=== PATIENT | female | born 1960 | race Caucasian/White ===

== ENCOUNTER 2020-06-07 11:30 | Emergency (ER) | payer OTHER ==
[2020-06-07] MEDS ORDERED: HYDROmorphone 1 MG/ML CARPUJECT IVP STA ×2 (11:49→14:26)
[2020-06-07] MEDS ORDERED: ONDANSETRON 4 MG/2 ML VIAL IVP STA (11:49)
--- NOTE | 2020-06-07 11:50 | ED Physician Documentation ---
PD HPI ABD PAIN - Stated complaint Stated Complaint: ABD PX/NAUSEA - Chief complaint Chief Complaint: Abd Pain - History obtained from History obtained from: Patient - Additional information Additional information: Severe RUQ pain with nausea, no vomiting, since 2 am. HX exlap with splenic repair (not splenectomy) 30 yrs ago. Pain radiates to LUQ. Review of Systems Ten Systems: 10 systems reviewed and negative Constitutional: denies: Fever, Chills Cardiac: denies: Chest pain / pressure, Palpitations Respiratory: denies: Dyspnea, Cough GI: reports: Abdominal Pain, Nausea, Diarrhea ("a little loose"). denies: Vomiting, Constipation PD PAST MEDICAL HISTORY - Present Medications Home Medications: Ambulatory Orders Medication Instructions Recorded Confirmed Oxycodone HCl/Acetaminophen 1 - 2 each PO Q6H PRN #20 tablet 06/07/20 [Percocet 5-325 mg Tablet] - Allergies Allergies/Adverse Reactions: Allergies Allergy/AdvReac Type Severity Reaction Status Date / Time Penicillins Allergy Unknown Verified 06/07/20 11:38 PD ED PE NORMAL - Vitals Vital signs reviewed: Yes - General General: Alert and oriented X 3, No acute distress - HEENT HEENT: PERRL, EOMI - Neck Neck: Supple, no meningeal sign, No bony TTP - Cardiac Cardiac: RRR, No murmur - Respiratory Respiratory: No respiratory distress, Clear bilaterally - Abdomen Abdomen: Other (Exquisitely tender in the right upper quadrant with positive Chavira sign, no other tenderness or surgical signs.) - Back Back: No CVA TTP, No spinal TTP - Derm Derm: Normal color, Warm and dry - Extremities Extremities: No edema, No calf tenderness / cord - Neuro Neuro: Alert and oriented X 3, Normal speech Results - Vitals Vitals: Vital Signs - 24 hr 06/07/20 06/07/20 06/07/20 11:38 11:56 12:45 Temperature 36.3 C L Heart Rate 58 L 52 L 53 L Respiratory 18 16 16 Rate Blood Pressure 141/56 H 132/71 H 112/68 O2 Saturation 100 100 97 06/07/20 06/07/20 06/07/20 14:00 14:53 15:17 Temperature 36.9 C Heart Rate 61 61 64 Respiratory 18 16 16 Rate Blood Pressure 107/68 108/71 108/67 O2 Saturation 99 98 98 Oxygen O2 Source Room air - Labs Labs: Laboratory Tests 06/07/20 06/07/20 06/07/20 11:50 11:50 12:15 WBC 8.2 RBC 4.76 Hgb 13.7 Hct 41.0 MCV 86.1 MCH 28.8 MCHC 33.4 RDW 12.8 Plt Count 206 MPV 10.1 Neut # (Auto) 7.0 H Lymph # (Auto) 0.9 L [place] # (Auto) 0.2 Eos # (Auto) 0.0 Baso # (Auto) 0.0 Absolute Nucleated RBC 0.00 Nucleated RBC % 0.0 Sodium 139 Potassium 3.7 Chloride 104 Carbon Dioxide 26 Anion Gap 9.0 BUN 18 Creatinine 0.7 Estimated GFR (MDRD) 85 L Glucose 162 H Calcium 9.4 Total Bilirubin 0.6 AST 17 ALT 21 Alkaline Phosphatase 48 Total Protein 7.5 Albumin 4.4 Globulin 3.1 Albumin/Globulin Ratio 1.4 Lipase 34 Urine Color LT. YELLOW Urine Clarity HAZY Urine pH 5.5 Ur Specific [place] >=1.030 H Urine Protein NEGATIVE Urine Glucose (UA) NEGATIVE Urine Ketones 15 H Urine Occult Blood NEGATIVE Urine Nitrite NEGATIVE Urine Bilirubin NEGATIVE Urine Urobilinogen 0.2 (NORMAL) Ur Leukocyte Esterase NEGATIVE Urine RBC None Seen Urine WBC 0-3 Ur Squamous Epith Cells NONE SEEN Amorphous Sediment Marked Urine Bacteria None Seen Urine Mucus Marked Strands Ur Microscopic Review INDICATED Urine Culture Comments NOT INDICATED - Rads (name of study) Right upper quadrant ultrasound Radiology: EMP read contemporaneously (Gallstones, no evidence of cholecystitis.) PD MEDICAL DECISION MAKING - ED course ED course: 60-year-old woman with fairly classic biliary colic. Pain was controlled after 2 doses of meds here. No evidence of cholecystitis or other issues on work-up. Departure - Departure Disposition: Home, Self Care Clinical Impression: Biliary colic Condition: Good Record reviewed to determine appropriate education?: Yes Instructions: ED Gallstone W Biliary Colic Follow-Up: Samy Ravi MD [Provider Admit Priv/Credential] - Prescriptions: Oxycodone HCl/Acetaminophen [Percocet 5-325 mg Tablet] 1 - 2 each PO Q6H PRN #20 tablet PRN Reason: pain Comments: As discussed, you do have gallstones and your pain is classic for biliary colic. You need to follow-up with a surgeon and talk about having her gallbladder out. One is listed on this form. I would call today or tomorrow for an appointment. I would try to have the surgery done before returning to [facility]. Return if worse, if you run a fever, if the whites of your eyes turn yellow, or if your stool becomes pale. Or if the pain medication is insufficient for the pain. Discharge Date/Time: 06/07/20 15:33
[2020-06-07 11:57] LABS: BASOPHILS % (AUTO) 0.1 %; HGB - HEMOGLOBIN 13.7 g/dL (12.0-16.0); LYMPHOCYTES # (AUTO) 0.9 10^3/uL (1.5-3.5); LYMPHOCYTES % (AUTO) 11.2 %; MEAN CORPUSCULAR HEMOGLOBIN 28.8 pg (27.0-31.0); MEAN CORPUSCULAR HGB CONC 33.4 g/dL (32.0-36.0); MEAN CORPUSCULAR VOLUME 86.1 fL (81.0-99.0); MEAN PLATELET VOLUME 10.1 fL (7.9-10.8); MONOCYTES # (AUTO) 0.2 10^3/uL (0.0-1.0); MONOCYTES % (AUTO) 2.8 %; NEUTROPHILS % (AUTO) 85.2 %; PLT - PLATELET COUNT 206 10^3/uL (130-450); RED BLOOD COUNT 4.76 10^6/uL (4.20-5.40); RED CELL DISTRIBUTION WIDTH 12.8 % (12.0-15.0); WHITE BLOOD COUNT 8.2 x10^3/uL (4.8-10.8)
[2020-06-07 12:11] LABS: ALBUMIN 4.4 g/dL (3.2-5.5); ALBUMIN/GLOBULIN RATIO 1.4 (1.0-2.2); BILIRUBIN,TOTAL 0.6 mg/dL (0.2-1.0); CALCIUM 9.4 mg/dL (8.5-10.3); CREATININE 0.7 mg/dL (0.4-1.0); TOTAL PROTEIN 7.5 g/dL (6.7-8.2)
[2020-06-07 12:25] LABS: BILIRUBIN,URINE NEGATIVE (NEGATIVE); GLUCOSE, URINE (UA) NEGATIVE (NEGATIVE); KETONES,URINE (UA) 15 mg/dL (NEGATIVE); LEUKOCYTE ESTERASE, URINE NEGATIVE (NEGATIVE); NITRITE,URINE NEGATIVE (NEGATIVE); OCCULT BLOOD,URINE NEGATIVE (NEGATIVE); PH,URINE 5.5 PH (5.0-7.5); PROTEIN,URINE NEGATIVE (NEGATIVE); UROBILINOGEN,URINE 0.2 (NORMAL) E.U./dL (NORMAL)
[2020-06-07 12:27] LABS: CLARITY,URINE HAZY (CLEAR)
[2020-06-07 12:37] LABS: AMORPHOUS SEDIMENT,UR Marked /LPF; BACTERIA,URINE None Seen /HPF (None Seen); MUCUS,URINE Marked Strands; RBC,URINE None Seen /HPF (0-5); SQUAMOUS EPITHELIAL CELL,UR NONE SEEN (<= Few)
[2020-06-07] MEDS ORDERED: KETOROLAC 30 MG/ML VIAL IVP STA (14:26)
--- NOTE | 2020-06-07 14:32 | Ultrasound Report ---
PROCEDURE: Abdomen Limited INDICATIONS: RUQ pain TECHNIQUE: Real-time scanning was performed of the abdominal and retroperitoneal organs, with image documentatio n. COMPARISON: None. FINDINGS: Liver: Liver is normal in size and homogeneous in echotexture. Gallbladder: Gallbladder is nondistended. Multiple shadowing gallstones. A larger gallstone measuring 2.1 cm. No gallbladder wall thickening. No pericholecystic fluid. Negative sonographic Chavira sign. Biliary ducts: Intrahepatic bile ducts are non-dilated. Extrahepatic bile duct caliber measures 3 m m. Normal is 6-7 mm or less in diameter, or 10 mm or less post-cholecystectomy. Pancreas: Visualized portions of the pancreas are sonographically normal. Spleen: Spleen is normal in size and homogeneous in echotexture. Right kidney: Measures 10 cm. Cortex 0.9 cm. No hydronephrosis. Aorta: Visualized aorta is normal in caliber at less than 3 cm. IMPRESSION: 1. No acute cholecystitis. 2. Large gallstone. 3. No right kidney hydronephrosis. Reviewed by: Jonathan Alfaro MD on 06/07/2020 2:30 PM PDT Approved by: Jonathan Alfaro MD on 06/07/2020 2:30 PM PDT Station ID: [id number]
[2020-06-07 15:19] VITALS: BP 108/67
== END 2020-06-07 15:33 | disposition home or self-care (01) ==
LOC: ED 11:30
DX: K80.70 Calculus of gallbladder and bile duct without cholecystitis without obstruction (principal)
CPT/HCPCS: 36415; 76705; 80053; 81001; 83690; 85025; 96374; 96376; 99283; 99284; J1170; 81003; 87086

== ENCOUNTER 2020-06-09 05:31 | Inpatient (IN) | payer OTHER ==
[2020-06-09] MEDS ORDERED: SODIUM CHLORIDE 0.9% 1,000 ML IV STA (06:01)
[2020-06-09] MEDS ORDERED: ONDANSETRON 4 MG/2 ML VIAL IVP STA (06:01)
[2020-06-09] MEDS ORDERED: HYDROmorphone 1 MG/ML CARPUJECT IVP STA (06:27)
[2020-06-09 06:33] LABS: BASOPHILS % (AUTO) 0.1 %; EOSINOPHILS # (AUTO) 0.1 10^3/uL (0.0-0.7); EOSINOPHILS % (AUTO) 0.6 %; HGB - HEMOGLOBIN 13.4 g/dL (12.0-16.0); LYMPHOCYTES # (AUTO) 1.1 10^3/uL (1.5-3.5); LYMPHOCYTES % (AUTO) 14.5 %; MEAN CORPUSCULAR HEMOGLOBIN 29.3 pg (27.0-31.0); MEAN CORPUSCULAR HGB CONC 33.5 g/dL (32.0-36.0); MEAN CORPUSCULAR VOLUME 87.3 fL (81.0-99.0); MEAN PLATELET VOLUME 10.3 fL (7.9-10.8); MONOCYTES # (AUTO) 0.6 10^3/uL (0.0-1.0); MONOCYTES % (AUTO) 8.1 %; NEUTROPHILS % (AUTO) 76.3 %; PLT - PLATELET COUNT 179 10^3/uL (130-450); RED BLOOD COUNT 4.58 10^6/uL (4.20-5.40); WHITE BLOOD COUNT 7.8 x10^3/uL (4.8-10.8)
--- NOTE | 2020-06-09 06:33 | ED Physician Documentation ---
History of Present Illness - Stated complaint Stated Complaint: ABD PX - Chief complaint Chief Complaint: Abd Pain - History obtained from History obtained from: Patient - Additonal information Additional information: Patient returns emergency department complaining of ongoing right upper quadrant abdominal pain since being discharged and diagnosed with gallstones 2 days ago. At that time, patient was not found to have cholecystitis and due to the operating room closure except for emergency cases, the patient was not a candidate for surgery. Additionally, it is documented that she felt better a fter symptomatic treatment. Patient states that she does not really feel like she is gotten better and in fact she feels her pain is gotten worse because she has not been able to hold down her pain medication. She states she does not have any nausea medic. Patient denies any fevers or chills. No jaundice. She states that she stopped really trying to eat after vomiting yesterday morning and stopped taking her pain pills, so she has not vomited since. However, she continues to feel nauseated. No other complaints at this time. Review of Systems Ten Systems: 10 systems reviewed and negative Constitutional: reports: Reviewed and negative Eyes: reports: Reviewed and negative Ears: reports: Reviewed and negative Nose: reports: Reviewed and negative Throat: reports: Reviewed and negative Cardiac: reports: Reviewed and negative Respiratory: reports: Reviewed and negative GI: reports: Abdominal Pain, Nausea, Vomiting : reports: Reviewed and negative Skin: reports: Reviewed and negative Musculoskeletal: reports: Reviewed and negative Neurologic: reports: Reviewed and negative Psychiatric: reports: Reviewed and negative Endocrine: reports: Reviewed and negative Immunocompromised: reports: Reviewed and negative PD PAST MEDICAL HISTORY - Past Medical History Cardiovascular: None Respiratory: None Neuro: None Endocrine/Autoimmune: None GI: None [employer]: None : None HEENT: None Psych: None Musculoskeletal: None Derm: None - Past Surgical History Past Surgical History: Yes General: Appendectomy - Present Medications Home Medications: Ambulatory Orders Medication Instructions Recorded Confirmed Oxycodone HCl/Acetaminophen 1 - 2 each PO Q6H PRN #20 tablet 06/07/20 06/09/20 [Percocet 5-325 mg Tablet] - Allergies Allergies/Adverse Reactions: Allergies Allergy/AdvReac Type Severity Reaction Status Date / Time Penicillins Allergy Unknown Verified 06/09/20 05:40 - Social History Does the pt smoke?: No Smoking Status: Never smoker Does the pt drink ETOH?: No Does the pt have substance abuse?: No - Immunizations Immunizations are current?: Yes PD ED PE NORMAL - Vitals Vital signs reviewed: Yes - General General: Alert and oriented X 3, No acute distress (Patient appears moderately uncomfortable but otherwise no apparent distress.), Well developed/nourished - HEENT HEENT: Atraumatic, PERRL, EOMI, Moist mucous membranes - Neck Neck: Supple, no meningeal sign - Cardiac Cardiac: RRR, No murmur, Strong equal pulses - Respiratory Respiratory: No respiratory distress, Clear bilaterally - Abdomen Abdomen: Soft, Non distended, Other (ModerateSuprapubic and right lower quadrant tenderness with even more tenderness in the right upper quadrant. Mild guarding no rebound.) - Back Back: No CVA TTP - Derm Derm: Normal color, Warm and dry, No rash - Extremities Extremities: No deformity, No edema, No calf tenderness / cord - Neuro Neuro: Alert and oriented X 3, Other (Grossly normal) - Psych Psych: Normal mood, Normal affect Results - Vitals Vitals: Vital Signs - 24 hr 06/09/20 05:36 Temperature 36.7 C Heart Rate 84 Respiratory 16 Rate Blood Pressure 129/62 O2 Saturation 100 Oxygen O2 Source Room air - Labs Labs: Laboratory Tests 06/09/20 06/09/20 06/09/20 06:10 06:10 06:10 WBC 7.8 RBC 4.58 Hgb 13.4 Hct 40.0 MCV 87.3 MCH 29.3 MCHC 33.5 RDW 13.0 Plt Count 179 MPV 10.3 Neut # (Auto) 6.0 Lymph # (Auto) 1.1 L [place] # (Auto) 0.6 Eos # (Auto) 0.1 Baso # (Auto) 0.0 Absolute Nucleated RBC 0.00 Nucleated RBC % 0.0 Sodium 137 Potassium 3.5 Chloride 103 Carbon Dioxide 24 Anion Gap 10.0 BUN 9 Creatinine 0.7 Estimated GFR (MDRD) 85 L Glucose 103 H Calcium 8.9 Total Bilirubin 0.8 AST 64 H ALT 128 H Alkaline Phosphatase 54 Total Protein 7.1 Albumin 3.8 Globulin 3.3 Albumin/Globulin Ratio 1.2 Lipase 41 42 PD MEDICAL DECISION MAKING - ED course Complexity details: reviewed old records, reviewed results, re-evaluated patient, considered differential, d/w patient ED course: The patient was treated symptomatically with IV fluids, Zofran, and Dilaudid. Repeat labs and ultrasound were ordered. The patient's AST and ALT were found to be newly elevated since her last visit. At this point in time, ultrasound is pending, and patient is signed out to Dr. Berry, pending this and final disposition.
[2020-06-09 06:36] LABS: ALBUMIN 3.8 g/dL (3.2-5.5); ALBUMIN/GLOBULIN RATIO 1.2 (1.0-2.2); BILIRUBIN,TOTAL 0.8 mg/dL (0.2-1.0); CALCIUM 8.9 mg/dL (8.5-10.3); CREATININE 0.7 mg/dL (0.4-1.0); TOTAL PROTEIN 7.1 g/dL (6.7-8.2)
--- NOTE | 2020-06-09 07:34 | Ultrasound Report ---
PROCEDURE: Abdomen Limited INDICATIONS: worsening abdominal pain, gallstones TECHNIQUE: Real-time focused scanning was performed of the abdomen, with image documentation. COMPARISON: 06/07/2020 FINDINGS: Liver is normal in size and homogeneous in echotexture. Large gallstone measuring up to 2.1 cm noted. 1.1 cm gallstone noted in the gallbladder neck. Gallbla dder wall is thickened to 15 mm. No pericholecystic fluid. No sonographic Chavira's sign reported, how ever pain medications were administered prior to image acquisition. Delayed tree is nondilated. Common bile duct measures 5 mm. Head and body of pancreas are sonographically normal. Tail is only partially visualized, but appears grossly normal. Right kidney is sonographically normal. IMPRESSION: Cholelithiasis with gallbladder wall thickening highly suspicious for acute cholecystitis. Reviewed by: Danae Leone MD, PhD on 06/09/2020 7:33 AM PDT Approved by: Danae Leone MD, PhD on 06/09/2020 7:33 AM PDT Station ID: [id number]
[2020-06-09] MEDS ORDERED: ACETAMINOPHEN 1,000 MG/100 ML 100 ML IV PRN (08:50)
[2020-06-09] MEDS ORDERED: ONDANSETRON 4 MG/2 ML VIAL IVP PRN ×2 (08:50→17:22)
[2020-06-09] MEDS ORDERED: ENOXAPARIN 40 MG/0.4 ML SYRINGE SUBQ SCH (09:00)
[2020-06-09] MEDS: HYDROmorphone 0.5 MG/0.5 ML SYRINGE IVP PRN ×3 (11:08→23:34)
--- NOTE | 2020-06-09 13:45 | ED Physician Documentation ---
ED Addendum - Addendum Addendum: 06/09/20 13:44 The requested electrocardiogram is interpreted with the following information: Time in the tracing is 13:36, rate is 79, the rhythm is sinus, there are Q waves in the inferior leads consistent with prior inferior infarct, there is no evidence of ischemia on the electrocardiogram and there is no prior tracing for comparison.
[2020-06-09] MEDS ORDERED: CIPROFLOXACIN 400 MG/200 ML 400 MG/200 ML BAG IV SCH (14:00)
[2020-06-09] MEDS: metroNIDAZOLE 500 MG/100 ML 500 MG/100 ML BAG IV SCH ×2 (14:07→22:42)
--- NOTE | 2020-06-09 14:22 | XRAY Report ---
PROCEDURE: Chest 1 View X-Ray INDICATIONS: pre op jose TECHNIQUE: One view of the chest was acquired. COMPARISON: None FINDINGS: Surgical changes and devices: None. Lungs and pleura: Small linear opacity is present in the right base. There is blunting of the left co stophrenic angle. Mediastinum: Mediastinal contours appear normal. Heart size is normal. Bones and chest wall: No suspicious bony lesions. Overlying soft tissues appear unremarkable. IMPRESSION: 1. Linear opacity in the right base, possibly related to scarring or atelectasis. Blunting of the lef t costophrenic angle is present. This could represent trace effusion versus scarring. No priors are a vailable for comparison. Reviewed by: Anai Barreto MD on 06/09/2020 2:21 PM PDT Approved by: Anai Barreto MD on 06/09/2020 2:21 PM PDT Station ID: [id number]
[2020-06-09] MEDS ORDERED: LIDOCAINE 1%-EPI 1:100000 20 ML MDV ONE (14:34)
[2020-06-09] MEDS ORDERED: BUPIVACAINE 0.5% PF 30 ML VIAL ONE (14:34)
[2020-06-09] MEDS ORDERED: BUPIVACAINE 0.5% PF 30 ML VIAL INFIL ONE (17:21)
[2020-06-09] MEDS ORDERED: LIDOCAINE 1%-EPI 1:100000 30 ML MDV SUBQ ONE (17:21)
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
[2020-06-09] MEDS ORDERED: ePHEDrine 50 MG/ML VIAL IVP PRN (17:22)
[2020-06-09] MEDS ORDERED: NALOXONE 0.4 MG/ML VIAL IVP PRN (17:22)
[2020-06-09] MEDS ORDERED: fentaNYL 100 MCG/2 ML VIAL IVP PRN (17:22)
[2020-06-09] MEDS ORDERED: ATROPINE ABBOJECT 1 MG/10 ML SYRINGE IVP PRN (17:22)
[2020-06-09] MEDS ORDERED: MORPHINE 2 MG/ML CARPUJECT IVP PRN ×2 (17:22→23:30)
[2020-06-09] MEDS ORDERED: METOCLOPRAMIDE 10 MG/2 ML VIAL IVP PRN (17:22)
[2020-06-09] MEDS ORDERED: LACTATED RINGERS 1,000 ML IV SCH (18:00)
[2020-06-09] MEDS ORDERED: LACTATED RINGERS 300 ML IV ONE (21:30)
--- NOTE | 2020-06-09 22:13 | ANESTHESIA POST OP EVALUATION ---
Anesthesia Post Eval - Post Anesthesia Eval Vitals: Last Vital Signs Temp 36.6 C 06/09/20 21:50 Pulse 86 06/09/20 21:50 Resp 14 06/09/20 21:50 BP 131/72 H 06/09/20 21:50 Pulse Ox 99 06/09/20 21:50 CV Function Including HR & BP: positive: Stable Pain Control: positive: Satisfactory Nausea & Vomiting: positive: Negative Mental Status: positive: Baseline, Other (Drowsy but easily aroused and answers appropriately.) Respiratory Status: Airway Patent Hydration Status: Satisfactory Anesthesia Complications: positive: None (Transferred to ICU for overnight management due to late hour and pain management needs.)
[2020-06-09] MEDS: methocarbamoL 500 MG TABLET PO SCH ×3 (22:42→22:44)
[2020-06-09] MEDS: PANTOPRAZOLE 40 MG VIAL IVP SCH (22:42)
[2020-06-09] MEDS: METOCLOPRAMIDE 10 MG/2 ML VIAL IVP SCH ×3 (22:42→22:44)
[2020-06-09] MEDS: SODIUM CHLORIDE FLUSH 0.9% 10 ML SYRINGE IVP SCH ×2 (22:42→22:43)
[2020-06-09] MEDS: D5NS W/20 MEQ KCL 1,000 ML IV SCH ×2 (22:42→22:43)
[2020-06-09] MEDS ORDERED: IPRATROPIUM 0.2 MG/ML NEB INH PRN (23:14)
[2020-06-09] MEDS ORDERED: SODIUM CHLORIDE FLUSH 0.9% 10 ML SYRINGE IVP PRN (23:14)
[2020-06-09] MEDS ORDERED: ALBUTEROL NEB 2.5 MG/3 ML INH PRN (23:14)
--- NOTE | 2020-06-09 23:29 | OPERATIVE REPORT ---
Operative Report - General Admit Date: 06/09/20 Procedure Date: 06/10/20 Planned Procedure: 1. Diagnostic laparoscopy 2. Laparoscopic cholecystectomy 3. Anticipated laparoscopic lysis of adhesions Pre-Op Diagnosis: Acute Cholecystitis, Refractory Biliary Colic, History of Trauma Laparotomy Procedure Performed: 1. Diagnostic laparoscopy 2. Extensive laparoscopic adhesio lysis 3. Conversion to open cholecystectomy 4. Partial omentectomy 5. Wide local drainage 6. Repair of umbilical hernia open 7. Placement of anti-adhesive barrier Post Op Diagnosis: Same, Gangrenous Cholecystitis, Hostile Abdomen, Macdonald Abdominal Adhesions - Procedure Note Primary Surgeon: Breonna Secondary Surgeon: Antonio Anesthesia Provider: Carol Anesthesia Technique: General ET tube, Local Pathology: 1. Gallbladder 2. Omentum Estimated Blood Loss (mL): 250 Drain/Tube Type: Virgil drain, Other (1. Right lower quadrant Virgil drain 19 Estonian within the pelvis 2. Left upper quadrant Virgil drain 19 Estonian within the gallbladder fossa) Indications: Chronic cholecystitis in a 60-year-old female with history of trauma laparotomy for whom splenorrhaphy was performed several decades prior. She has been evaluated through surgical clinic for elective/urgent cholecystectomy, she has in the meanwhile had multiple trips to the emergency room for symptomatic biliary colic, cholelithiasis with obstruction, and current admission with acute cholecystitis significant wall thickening and pericholecystic fluid. I discussed this case with Dr. Navarrete who encouraged me to proceed with operative intervention given the patient's refractory symptoms. Please note that Dr. Navarrete had seen this patient in clinic and had scheduled the patient for operative intervention in the near future. She had leukocytosis, right upper quadrant pain, and developing jaundice however imaging was without any concerns for choledocholithiasis.Patient was advised of the risks and benefits to proceed with operative intervention in this acute setting, informed consent was obtained. Findings: 1. Omental adhesions throughout the entire abdomen extending to the pelvis 2. Macdonald abdominal adhesions including dense hepatic adhesions to the anterior abdominal wall 3. Densely adhered omentum and liver to the gallbladder which was thickened for its wall with significant pericholecystic fluid and early gangrenous findings. 4. Inability to dissect the gallbladder safely dome down given the hepatic adhesions from the patient's trauma laparotomy with prohibitive visualization, exposure, and effective hemostasis. 5. 2 and only 2 structures entering the gallbladder after full dissection off the fossa which were triply clipped and divided. 6. Dense scar tissue secondary to chronic cholecystitis of the gallbladder to the fossa. Large impressive gallstones noted within the gallbladder which was necessarily decompressed during the laparoscopic portion of this operative intervention for exposure. 7. Bowel run for its entirety with no other concerns for injury the entire colon also exposed and performed for omentectomy secondary to multiple defects and rents from adhesio lysis with worry for necrosis and or internal herniation 8. Transverse mesocolon repaired with [id number] to avoid internal herniation. Complications: None - Other Other Information/Narrative: Pending addendum
--- NOTE | 2020-06-09 23:30 | SURGERY HX AND PHYSICAL(T) ---
Surgical History & Physical - Chief Complaint/HPI Chief Complaint: Recurrent biliary colic with acute on chronic cholecystitis History of Present Illness: 60-year-old female with past surgical history notable for trauma laparotomy at which time she underwent splenorrhaphy for preservation who presents with recurrent biliary colic in setting of Deysi lithiasis who has been seen recently in clinic and evaluated for urgent cholecystectomy in the next 2 to 3 weeks. Patient has been through the emergency room multiply with regard to her persistent symptomatology. She presents today with cholecystitis, febrile episode, leukocytosis, and wall thickening/pericholecystic fluid. For the compl ete history please see her outpatient history and physical from Dr. Navarrete with whom I spoke about this patient and case. - PMH/PSH/Social Hx Does the pt have a hx of MRSA?: No Neurological History: None Eyes, Ears, Nose, Throat: None Cardiovascular: None Respiratory: None Skin: None Endocrine/Autoimmune: None Gastrointestinal: None CATTLE BRANDER: None Urinary: None Musculoskeletal: None Blood Disorders: None Psychiatric: None General: Appendectomy, Other (Abdominal for head on trauma) Smoking Status: Never smoker Does the pt drink ETOH?: No Does the pt have substance abuse?: No - Home Meds and Allergies Home Medications: Lactobacillus Acidophilus [Probiotic Acidophilus] 1 each PO DAILY 06/10/20 Multivitamin [Theragran] 1 each PO DAILY 06/10/20 Allergies/Adverse Reactions: Allergies Allergy/AdvReac Type Severity Reaction Status Date / Time Penicillins Allergy Unknown Verified 06/09/20 05:40 - Review of Systems Constitutional: Fatigue, Fever Skin: Jaundice Gastrointestinal: Nausea, Vomiting, Abdominal pain Gentinourinary: Other (Darkening urine) Endocrinologic: Sweating - Vital Signs Heart Rate: 86 Blood Pressure: 131/72 Temperature: 37.1 C Respiratory Rate: 14 O2 Saturation: 98 Weight (kg): 68.039 kg Height: 1.7 m - Physical Exam General Appearance: positive: Alert, Mild distress Eyes Bilatera: positive: Normal inspection, PERRL, EOMI ENT: positive: ENT inspection nml Neck: positive: Nml inspection Respiratory: positive: Chest non-tender, No respiratory distress, Breath sounds nml. negative: Wheezes, Rales, Rhonchi Cardiovascular: positive: Regular rate & rhythm Abdomen: positive: Tenderness, Other (Significant tenderness to palpation with reproducible Chavira sign and right upper quadrant consistent with imaging and historic presentation. Localized right upper quadrant rebound and guarding however no generalized peritoneal signs. Long well-healed midline scar subxiphoid to suprapubic.). negative: Guarding, Rebound Extremities: positive: Non-tender, Full ROM, Nml appearance Neurologic/Psychiatric: positive: Oriented x3, CN's nml (2-12), Motor nml, Sensation nml, Mood/affect nml - Patient Review Patient Review: Problems were reviewed with the patient during this visit. Medications were reviewed with the patient during this visit. Allergies were reviewed this patient during this visit. Pertinent Tests Reviewed: All pertitent test for this patient were reviewed. - Assessment & Plan Assessment and Plan: Admission diagnoses: 1. Cholelithiasis, large with distal impaction 2. Acute on chronic cholecystitis 3. History of trauma laparotomy 4. No evidence on imaging or labs for choledocholithiasis 60-year-old female presenting with acute on chronic cholecystitis after multiple episodes and exacerbations pending elective urgent resection who presents once again to the emergency room with evidence of acute inflammatory changes, leukocytosis, tachycardia, fever consistent with SIRS. Advised the patient of the indication to undergo operative intervention. Will attempt diagnostic laparoscopy and laparoscopic cholecystectomy however as always patient was advised of the potential for converting to open intervention. We will start antibiotics, bowel rest, IV fluids, pain management and proceed with urgent intervention with the next 12 hours. Please note that voice recognition software was used to transcribe this note and inadvertent errors might persist in spite of review and editing. I am obliged to you for your attention. I am thankful to you for allowing me to participate with you in this care of this patient.
[2020-06-09] MEDS ORDERED: D5NS W/20 MEQ KCL 1,000 ML IV SCH (23:45)
[2020-06-09] MEDS ORDERED: metroNIDAZOLE 500 MG/100 ML 500 MG/100 ML BAG IV SCH (23:45)
[2020-06-10] MEDS: HYDROmorphone 0.5 MG/0.5 ML SYRINGE IVP PRN (00:04)
[2020-06-10] MEDS ORDERED: HYDROmorphone 2 MG/ML VIAL ONE (00:34)
[2020-06-10] MEDS: HYDROmorphone PCA 20MG/100ML IV PRN (00:39)
[2020-06-10] MEDS: D5NS W/20 MEQ KCL 1,000 ML IV SCH ×3 (00:48→21:16)
[2020-06-10] MEDS: CIPROFLOXACIN 400 MG/200 ML 400 MG/200 ML BAG IV SCH ×3 (00:48→23:31)
[2020-06-10] MEDS: methocarbamoL 500 MG TABLET PO SCH ×5 (01:24→23:30)
[2020-06-10] MEDS: SODIUM CHLORIDE FLUSH 0.9% 10 ML SYRINGE IVP SCH ×6 (01:26→18:19)
[2020-06-10] MEDS: METOCLOPRAMIDE 10 MG/2 ML VIAL IVP SCH ×5 (01:27→23:30)
[2020-06-10] MEDS: metroNIDAZOLE 500 MG/100 ML 500 MG/100 ML BAG IV SCH ×3 (01:57→18:18)
[2020-06-10 02:06] LABS: BASOPHILS % (AUTO) 0.2 %; EOSINOPHILS # (AUTO) 0.1 10^3/uL (0.0-0.7); EOSINOPHILS % (AUTO) 0.5 %; HGB - HEMOGLOBIN 11.5 g/dL (12.0-16.0); LYMPHOCYTES # (AUTO) 0.3 10^3/uL (1.5-3.5); LYMPHOCYTES % (AUTO) 2.8 %; MEAN CORPUSCULAR HEMOGLOBIN 29.1 pg (27.0-31.0); MEAN CORPUSCULAR HGB CONC 33.2 g/dL (32.0-36.0); MEAN CORPUSCULAR VOLUME 87.6 fL (81.0-99.0); MEAN PLATELET VOLUME 10.2 fL (7.9-10.8); MONOCYTES # (AUTO) 0.6 10^3/uL (0.0-1.0); MONOCYTES % (AUTO) 5.3 %; NEUTROPHILS # (AUTO) 9.6 10^3/uL (1.5-6.6); NEUTROPHILS % (AUTO) 90.8 %; PLT - PLATELET COUNT 160 10^3/uL (130-450); RED BLOOD COUNT 3.95 10^6/uL (4.20-5.40); RED CELL DISTRIBUTION WIDTH 12.7 % (12.0-15.0); WHITE BLOOD COUNT 10.6 x10^3/uL (4.8-10.8)
[2020-06-10 02:18] LABS: ALBUMIN 2.9 g/dL (3.2-5.5); BILIRUBIN,TOTAL 0.8 mg/dL (0.2-1.0); CALCIUM 7.9 mg/dL (8.5-10.3); CREATININE 0.7 mg/dL (0.4-1.0); TOTAL PROTEIN 5.8 g/dL (6.7-8.2)
[2020-06-10] MEDS: PANTOPRAZOLE 40 MG VIAL IVP SCH (06:14)
[2020-06-10] MEDS: HEPARIN 5,000 UNIT/ML VIAL SUBQ SCH ×2 (09:01→20:00)
[2020-06-10] MEDS: polyethylene glycoL 3350 17 GM PACKET PO SCH ×2 (09:17→20:11)
[2020-06-10] MEDS: DOCUSATE SODIUM 100 MG CAPSULE PO SCH ×2 (09:18→20:12)
--- NOTE | 2020-06-10 11:01 | PHARMACY PROGRESS NOTE ---
- Best Possible Medication History Admit Date and Time: 06/09/20 5772 Processed by: Pharmacy Medication History completed: Yes Patient Interview: Completed Secondary Source(s): Insurance records As the person ultimately responsible for medication therapy, providers are able to order a medication from an existing home medication list in [facility] via the "Reconcile Routine" prior to Confirmation of that medication by human resources support specialist. Such practice is discouraged except when the physician, in their clinical judgment, deems that a medical need exists for a medication without regard to previous use.
--- NOTE | 2020-06-10 19:49 | PROVIDER PROGRESS NOTE ---
Progress Note Subjective Postoperative day 1 status post open cholecystectomy converted from laparoscopic for hostile abdomen. Gangrenous cholecystitis. Remains on antibiotics. Awaiting return of bowel function. Drains in place with no complaints. IV access was provided by me through external jugular vein given challenge with peripheral line in upper extremities. Lutz remains in place Procedure Performed: 1. Diagnostic laparoscopy 2. Extensive laparoscopic adhesio lysis 3. Conversion to open cholecystectomy 4. Partial omentectomy 5. Wide local drainage 6. Repair of umbilical hernia open 7. Placement of anti-adhesive barrier Post Op Diagnosis: Same, Gangrenous Cholecystitis, Hostile Abdomen, Macdonald Abdominal Adhesions Findings: 1. Omental adhesions throughout the entire abdomen extending to the pelvis 2. Macdonald abdominal adhesions including dense hepatic adhesions to the anterior abdominal wall 3. Densely adhered omentum and liver to the gallbladder which was thickened for its wall with significant pericholecystic fluid and early gangrenous findings. 4. Inability to dissect the gallbladder safely dome down given the hepatic adhesions from the patient's trauma laparotomy with prohibitive visualization, exposure, and effective hemostasis. 5. 2 and only 2 structures entering the gallbladder after full dissection off the fossa which were triply clipped and divided. 6. Dense scar tissue secondary to chronic cholecystitis of the gallbladder to the fossa. Large impressive gallstones noted within the gallbladder which was necessarily decompressed during the laparoscopic portion of this operative intervention for exposure. 7. Bowel run for its entirety with no other concerns for injury the entire colon also exposed and performed for omentectomy secondary to multiple defects and rents from adhesio lysis with worry for necrosis and or internal herniation 8. Transverse mesocolon repaired with [id number] to avoid internal herniation. Objective Afebrile hemodynamically acceptable General Appearance: positive: No acute distress Eyes Bilateral: positive: Normal inspection ENT: positive: ENT inspection nml Neck: positive: Nml inspection Respiratory: positive: Chest non-tender, No respiratory distress, Breath sounds nml. negative: Wheezes, Rales, Rhonchi Cardiovascular: positive: Regular rate & rhythm Abdomen: positive: No distention, Other. negative: Guarding, Rebound Extremities: positive: Non-tender, Full ROM, Nml appearance Neurologic/Psychiatric: positive: Oriented x3, CN's nml (2-12) Wounds clean dry and intact, dressings in place including Amanda, drains x2 serosanguineous. Impression/Plan Postop day #1 status above listed procedure. Okay for transfer out of the ICU. Plan going forward is as follows: (1) GI - IVF, bowel regimen, advance diet as tolerated. GI ppx. [Anticipate ileus]. Opiate sparring analgesia. (2) SURGERY - continue Virgil drains. Continue Amanda VAC. We will likely remove drains prior to discharge. (3) Renal/Lytes - continue IVF. Renal indices within normal limits. Trial of void. (4) Respiratory - O2 as necessary. Continue IS. (5) Heme - Will continue with DVT ppx. H/H stable. (6) Cardiovascular - HD acceptable. (7) Neuro - Opiate sparring analgesia. Antispasmodics with Robaxin. [Toradol]. Neuropathic agents. (8) Immune/Infectious Disease - continue antibiotics given gangrenous cholecystitis. (9) DISPOSITION - physical therapy and Occupational Therapy. Transfer out of the ICU. Anticipate prolonged recovery in the setting of open cholecystectomy.
[2020-06-10] MEDS: PREGABALIN 100 MG CAPSULE PO SCH (20:12)
[2020-06-10] MEDS: CELECOXIB 100 MG CAPSULE PO SCH (20:12)
[2020-06-11] MEDS: D5NS W/20 MEQ KCL 1,000 ML IV SCH ×3 (00:38→20:14)
[2020-06-11] MEDS: SODIUM CHLORIDE FLUSH 0.9% 10 ML SYRINGE IVP SCH ×6 (00:38→17:40)
[2020-06-11] MEDS: metroNIDAZOLE 500 MG/100 ML 500 MG/100 ML BAG IV SCH ×3 (02:18→17:43)
[2020-06-11 05:21] LABS: BASOPHILS % (AUTO) 0.2 %; EOSINOPHILS % (AUTO) 0.2 %; HGB - HEMOGLOBIN 10.8 g/dL (12.0-16.0); LYMPHOCYTES # (AUTO) 1.3 10^3/uL (1.5-3.5); LYMPHOCYTES % (AUTO) 14.7 %; MEAN CORPUSCULAR HEMOGLOBIN 27.8 pg (27.0-31.0); MEAN CORPUSCULAR HGB CONC 31.4 g/dL (32.0-36.0); MEAN CORPUSCULAR VOLUME 88.7 fL (81.0-99.0); MEAN PLATELET VOLUME 10.4 fL (7.9-10.8); MONOCYTES # (AUTO) 0.6 10^3/uL (0.0-1.0); MONOCYTES % (AUTO) 7.2 %; NEUTROPHILS # (AUTO) 6.7 10^3/uL (1.5-6.6); NEUTROPHILS % (AUTO) 77.4 %; PLT - PLATELET COUNT 210 10^3/uL (130-450); RED BLOOD COUNT 3.88 10^6/uL (4.20-5.40); RED CELL DISTRIBUTION WIDTH 13.2 % (12.0-15.0); WHITE BLOOD COUNT 8.7 x10^3/uL (4.8-10.8)
[2020-06-11 05:36] LABS: ALBUMIN 2.8 g/dL (3.2-5.5); BILIRUBIN,TOTAL 0.5 mg/dL (0.2-1.0); CALCIUM 8.1 mg/dL (8.5-10.3); CREATININE 0.7 mg/dL (0.4-1.0); TOTAL PROTEIN 5.6 g/dL (6.7-8.2)
[2020-06-11] MEDS: METOCLOPRAMIDE 10 MG/2 ML VIAL IVP SCH ×3 (06:03→17:42)
[2020-06-11] MEDS: methocarbamoL 500 MG TABLET PO SCH ×3 (06:03→17:42)
[2020-06-11] MEDS: PANTOPRAZOLE 40 MG VIAL IVP SCH (06:03)
[2020-06-11] MEDS: polyethylene glycoL 3350 17 GM PACKET PO SCH ×2 (09:15→20:57)
[2020-06-11] MEDS: PREGABALIN 100 MG CAPSULE PO SCH ×2 (09:16→20:58)
[2020-06-11] MEDS: CELECOXIB 100 MG CAPSULE PO SCH (09:16)
[2020-06-11] MEDS: HEPARIN 5,000 UNIT/ML VIAL SUBQ SCH ×2 (09:16→20:59)
[2020-06-11] MEDS: DOCUSATE SODIUM 100 MG CAPSULE PO SCH ×2 (09:17→20:58)
[2020-06-11] MEDS: CIPROFLOXACIN 400 MG/200 ML 400 MG/200 ML BAG IV SCH (11:38)
[2020-06-11] MEDS: KETOROLAC 15 MG/ML VIAL IVP SCH (17:41)
[2020-06-12] MEDS: CIPROFLOXACIN 400 MG/200 ML 400 MG/200 ML BAG IV SCH ×2 (00:03→12:28)
[2020-06-12] MEDS: methocarbamoL 500 MG TABLET PO SCH ×4 (00:04→18:14)
[2020-06-12] MEDS: KETOROLAC 15 MG/ML VIAL IVP SCH ×3 (00:04→12:44)
[2020-06-12] MEDS: METOCLOPRAMIDE 10 MG/2 ML VIAL IVP SCH ×4 (00:05→18:15)
[2020-06-12] MEDS: SODIUM CHLORIDE FLUSH 0.9% 10 ML SYRINGE IVP SCH ×6 (00:09→16:44)
[2020-06-12] MEDS: HYDROmorphone PCA 20MG/100ML IV PRN (00:17)
[2020-06-12] MEDS ORDERED: HYDROmorphone PCA 20MG/100ML 100 ML IV ONE (00:23)
[2020-06-12] MEDS: D5NS W/20 MEQ KCL 1,000 ML IV SCH ×4 (01:28→18:24)
[2020-06-12] MEDS: metroNIDAZOLE 500 MG/100 ML 500 MG/100 ML BAG IV SCH ×3 (01:32→18:15)
[2020-06-12 05:33] LABS: BASOPHILS % (AUTO) 0.4 %; EOSINOPHILS # (AUTO) 0.1 10^3/uL (0.0-0.7); HGB - HEMOGLOBIN 9.9 g/dL (12.0-16.0); LYMPHOCYTES # (AUTO) 1.3 10^3/uL (1.5-3.5); LYMPHOCYTES % (AUTO) 23.2 %; MEAN CORPUSCULAR HEMOGLOBIN 28.4 pg (27.0-31.0); MEAN CORPUSCULAR HGB CONC 31.6 g/dL (32.0-36.0); MEAN CORPUSCULAR VOLUME 89.7 fL (81.0-99.0); MEAN PLATELET VOLUME 9.9 fL (7.9-10.8); MONOCYTES # (AUTO) 0.4 10^3/uL (0.0-1.0); MONOCYTES % (AUTO) 7.4 %; NEUTROPHILS # (AUTO) 3.8 10^3/uL (1.5-6.6); NEUTROPHILS % (AUTO) 66.6 %; PLT - PLATELET COUNT 188 10^3/uL (130-450); RED BLOOD COUNT 3.49 10^6/uL (4.20-5.40); RED CELL DISTRIBUTION WIDTH 13.1 % (12.0-15.0); WHITE BLOOD COUNT 5.6 x10^3/uL (4.8-10.8)
[2020-06-12] MEDS: PANTOPRAZOLE 40 MG VIAL IVP SCH (05:45)
[2020-06-12 05:53] LABS: ALBUMIN 2.7 g/dL (3.2-5.5); ALBUMIN/GLOBULIN RATIO 1.1 (1.0-2.2); ALKALINE PHOSPHATASE 46 IU/L (42-121); ALT ALANINE AMINOTRANSFERASE 64 IU/L (10-60); AST ASPARTATE AMINOTRANSFERASE 21 IU/L (10-42); BILIRUBIN,TOTAL 0.7 mg/dL (0.2-1.0); BUN - BLOOD UREA NITROGEN < 5 mg/dL (6-20); CALCIUM 8.4 mg/dL (8.5-10.3); CARBON DIOXIDE - CO2 26 mmol/L (21-32); CHLORIDE 110 mmol/L (101-111); CREATININE 0.6 mg/dL (0.4-1.0); GLUCOSE 131 mg/dL (70-100); SODIUM 141 mmol/L (135-145); TOTAL PROTEIN 5.2 g/dL (6.7-8.2)
--- NOTE | 2020-06-12 08:06 | Discharge Plan ---
Discharge Plan Condition: Serious Instruction Topics: Metoclopramide injection, Methocarbamol tablets, Celecoxib capsules, Pregabalin capsules No Smoking: If you smoke, Please STOP! Call for help.
--- NOTE | 2020-06-12 08:06 | PROVIDER PROGRESS NOTE ---
Progress Note Subjective Postoperative day #2 status post open cholecystectomy converted from laparoscopic for hostile abdomen. Gangrenous cholecystitis. Remains on antibiotics. Voiding spontaneously. Single episode loose stool. No significant bowel function per patient. Procedure Performed: 1. Diagnostic laparoscopy 2. Extensive laparoscopic adhesio lysis 3. Conversion to open cholecystectomy 4. Partial omentectomy 5. Wide local drainage 6. Repair of umbilical hernia open 7. Placement of anti-adhesive barrier Post Op Diagnosis: Same, Gangrenous Cholecystitis, Hostile Abdomen, Macdonald Abdominal Adhesions Findings: 1. Omental adhesions throughout the entire abdomen extending to the pelvis 2. Macdonald abdominal adhesions including dense hepatic adhesions to the anterior abdominal wall 3. Densely adhered omentum and liver to the gallbladder which was thickened for its wall with significant pericholecystic fluid and early gangrenous findings. 4. Inability to dissect the gallbladder safely dome down given the hepatic adhesions from the patient's trauma laparotomy with prohibitive visualization, exposure, and effective hemostasis. 5. 2 and only 2 structures entering the gallbladder after full dissection off the fossa which were triply clipped and divided. 6. Dense scar tissue secondary to chronic cholecystitis of the gallbladder to the fossa. Large impressive gallstones noted within the gallbladder which was necessarily decompressed during the laparoscopic portion of this operative intervention for exposure. 7. Bowel run for its entirety with no other concerns for injury the entire colon also exposed and performed for omentectomy secondary to multiple defects and rents from adhesio lysis with worry for necrosis and or internal herniation 8. Transverse mesocolon repaired with [id number] to avoid internal herniation. Objective Afebrile hemodynamically acceptable General Appearance: positive: No acute distress Eyes Bilateral: positive: Normal inspection ENT: positive: ENT inspection nml Neck: positive: Nml inspection Respiratory: positive: Chest non-tender, No respiratory distress, Breath sounds nml. negative: Wheezes, Rales, Rhonchi Cardiovascular: positive: Regular rate & rhythm Abdomen: positive: No distention, Other. negative: Guarding, Rebound Extremities: positive: Non-tender, Full ROM, Nml appearance Neurologic/Psychiatric: positive: Oriented x3, CN's nml (2-12) Wounds clean dry and intact, dressings in place including Amanda, drains x2 serosanguineous, Left upper quadrant drain with signs of Surgicel at the level of the drain as well Impression/Plan Postop day #2 status above listed procedure. Transferred to floor. Plan going forward is as follows: (1) GI - IVF, bowel regimen, advance diet as tolerated. GI ppx. Opiate sparring analgesia. Will order full liquids and plan soft diet for tomorrow a.m. (2) SURGERY - continue Virgil drains. Continue Amanda VAC. We will likely remove drains prior to discharge. (3) Renal/Lytes - Decrease IVF. Renal indices within normal limits. (4) Respiratory - O2 as necessary. Continue IS. (5) Heme - Will continue with DVT ppx. H/H stable. (6) Cardiovascular - HD acceptable. (7) Neuro - Opiate sparring analgesia. Antispasmodics with Robaxin. Toradol. Neuropathic agents. (8) Immune/Infectious Disease - continue antibiotics given gangrenous cholecystitis. (9) DISPOSITION - physical therapy and Occupational Therapy. Likely discharge within the next 48 hours. Anticipate prolonged recovery in the setting of open cholecystectomy.
--- NOTE | 2020-06-12 08:06 | Discharge Plan ---
Discharge Plan Condition: Serious Instruction Topics: Metoclopramide injection, Methocarbamol tablets, Celecoxib capsules, Pregabalin capsules No Smoking: If you smoke, Please STOP! Call for help.
[2020-06-12] MEDS: PREGABALIN 100 MG CAPSULE PO SCH ×2 (10:01→20:41)
[2020-06-12] MEDS: DOCUSATE SODIUM 100 MG CAPSULE PO SCH ×2 (10:01→20:37)
[2020-06-12] MEDS: polyethylene glycoL 3350 17 GM PACKET PO SCH ×2 (10:43→20:37)
[2020-06-12] MEDS: HEPARIN 5,000 UNIT/ML VIAL SUBQ SCH ×2 (10:45→20:40)
[2020-06-12] MEDS ORDERED: ONDANSETRON 4 MG/2 ML VIAL IVP ONE (12:20)
[2020-06-12] MEDS ORDERED: SUCCINYLCHOLINE 200 MG/10 ML VIAL IVP ONE (12:20)
[2020-06-12] MEDS ORDERED: NEOSTIGMINE 1 MG/1 ML 10 ML MDV IVP ONE (12:20)
[2020-06-12] MEDS ORDERED: PROPOFOL 200 MG/20 ML VIAL IVP ONE (12:20)
[2020-06-12] MEDS ORDERED: ePHEDrine 50 MG/ML VIAL IVP ONE (12:20)
[2020-06-12] MEDS ORDERED: HYDROmorphone 1 MG/ML CARPUJECT IVP ONE (12:20)
[2020-06-12] MEDS ORDERED: ROCURONIUM 50 MG/5 ML VIAL IVP ONE (12:20)
[2020-06-12] MEDS ORDERED: GLYCOPYRROLATE 1 MG/5 ML VIAL IVP ONE (12:20)
[2020-06-12] MEDS ORDERED: ACETAMINOPHEN 1,000 MG/100 ML 100 ML IV ONE (12:20)
[2020-06-12] MEDS ORDERED: DEXAMETHASONE 4 MG/ML VIAL IVP ONE (12:20)
[2020-06-12] MEDS ORDERED: KETAMINE 500 MG/10 ML VIAL IVP ONE (12:20)
[2020-06-12] MEDS ORDERED: MIDAZOLAM 2 MG/2 ML VIAL IVP ONE (12:20)
[2020-06-12] MEDS ORDERED: fentaNYL 100 MCG/2 ML VIAL IVP ONE (12:20)
[2020-06-12] MEDS ORDERED: LIDOCAINE-MPF 2% 5 ML VIAL IM ONE (12:20)
--- NOTE | 2020-06-12 12:48 | PROVIDER PROGRESS NOTE ---
Progress Note Subjective Postoperative day #3 status post open cholecystectomy converted from laparoscopic for hostile abdomen. Gangrenous cholecystitis. Remains on antibiotics. Voiding spontaneously. Gas and stool. Procedure Performed: 1. Diagnostic laparoscopy 2. Extensive laparoscopic adhesio lysis 3. Conversion to open cholecystectomy 4. Partial omentectomy 5. Wide local drainage 6. Repair of umbilical hernia open 7. Placement of anti-adhesive barrier Post Op Diagnosis: Same, Gangrenous Cholecystitis, Hostile Abdomen, Macdonald Abdominal Adhesions Findings: 1. Omental adhesions throughout the entire abdomen extending to the pelvis 2. Macdonald abdominal adhesions including dense hepatic adhesions to the anterior abdominal wall 3. Densely adhered omentum and liver to the gallbladder which was thickened for its wall with significant pericholecystic fluid and early gangrenous findings. 4. Inability to dissect the gallbladder safely dome down given the hepatic adhesions from the patient's trauma laparotomy with prohibitive visualization, exposure, and effective hemostasis. 5. 2 and only 2 structures entering the gallbladder after full dissection off the fossa which were triply clipped and divided. 6. Dense scar tissue secondary to chronic cholecystitis of the gallbladder to the fossa. Large impressive gallstones noted within the gallbladder which was necessarily decompressed during the laparoscopic portion of this operative intervention for exposure. 7. Bowel run for its entirety with no other concerns for injury the entire colon also exposed and performed for omentectomy secondary to multiple defects and rents from adhesio lysis with worry for necrosis and or internal herniation 8. Transverse mesocolon repaired with [id number] to avoid internal herniation. Objective Afebrile hemodynamically acceptable General Appearance: positive: No acute distress Eyes Bilateral: positive: Normal inspection ENT: positive: ENT inspection nml Neck: positive: Nml inspection Respiratory: positive: Chest non-tender, No respiratory distress, Breath sounds nml. negative: Wheezes, Rales, Rhonchi Cardiovascular: positive: Regular rate & rhythm Abdomen: positive: No distention, Other. negative: Guarding, Rebound Extremities: positive: Non-tender, Full ROM, Nml appearance Neurologic/Psychiatric: positive: Oriented x3, CN's nml (2-12) Wounds clean dry and intact, dressings in place including Amanda, drains x2 serosanguineous, Left upper quadrant drain with signs of Surgicel at the level of the drain as well Impression/Plan Postop day #3 status above listed procedure. Plan going forward is as follows: (1) GI - IVF, bowel regimen, advance diet as tolerated. GI ppx. Opiate sparring analgesia. Soft diet for a.m. (2) SURGERY - continue Virgil drains. Continue Amanda VAC. We will likely remove the pelvic drain prior to discharge. (3) Renal/Lytes - Decrease IVF. Renal indices within normal limits. (4) Respiratory - O2 as necessary. Continue IS. (5) Heme - Will continue with DVT ppx. H/H stable. (6) Cardiovascular - HD acceptable. (7) Neuro - Opiate sparring analgesia. Antispasmodics with Robaxin. Have discontinued Toradol. Neuropathic agents. Will transition from NURSE ORTHOPAEDIC and discontinue to oral narcotics. (8) Immune/Infectious Disease - continue antibiotics given gangrenous cholecystitis. Will discharge on oral antibiotics for another 4 days. (9) DISPOSITION - physical therapy and Occupational Therapy. Likely discharge within the next 48 hours. Anticipate prolonged recovery in the setting of open cholecystectomy. Follow-up necessary for Amanda removal and final left upper quadrant gallbladder fossa drain to be removed. Patient will also need outpatient labs drawn on Friday.
[2020-06-12] MEDS: ACETAMINOPHEN 1,000 MG/100 ML 100 ML IV SCH ×2 (14:04→18:25)
[2020-06-13] MEDS: methocarbamoL 500 MG TABLET PO SCH ×4 (01:06→18:12)
[2020-06-13] MEDS: CIPROFLOXACIN 400 MG/200 ML 400 MG/200 ML BAG IV SCH ×2 (01:06→12:09)
[2020-06-13] MEDS: ACETAMINOPHEN 1,000 MG/100 ML 100 ML IV SCH ×4 (01:07→19:10)
[2020-06-13] MEDS: METOCLOPRAMIDE 10 MG/2 ML VIAL IVP SCH ×4 (01:07→18:40)
[2020-06-13] MEDS: SODIUM CHLORIDE FLUSH 0.9% 10 ML SYRINGE IVP SCH ×6 (01:08→16:28)
[2020-06-13] MEDS: metroNIDAZOLE 500 MG/100 ML 500 MG/100 ML BAG IV SCH ×3 (02:45→18:13)
[2020-06-13 05:26] LABS: BASOPHILS % (AUTO) 0.2 %; EOSINOPHILS # (AUTO) 0.1 10^3/uL (0.0-0.7); HGB - HEMOGLOBIN 9.5 g/dL (12.0-16.0); LYMPHOCYTES # (AUTO) 1.1 10^3/uL (1.5-3.5); LYMPHOCYTES % (AUTO) 27.4 %; MEAN CORPUSCULAR HGB CONC 32.9 g/dL (32.0-36.0); MEAN CORPUSCULAR VOLUME 88.1 fL (81.0-99.0); MEAN PLATELET VOLUME 9.5 fL (7.9-10.8); MONOCYTES # (AUTO) 0.4 10^3/uL (0.0-1.0); NEUTROPHILS # (AUTO) 2.4 10^3/uL (1.5-6.6); NEUTROPHILS % (AUTO) 60.2 %; PLT - PLATELET COUNT 180 10^3/uL (130-450); RED BLOOD COUNT 3.28 10^6/uL (4.20-5.40); RED CELL DISTRIBUTION WIDTH 12.9 % (12.0-15.0)
[2020-06-13 05:39] LABS: ALBUMIN 2.5 g/dL (3.2-5.5); ALKALINE PHOSPHATASE 45 IU/L (42-121); ALT ALANINE AMINOTRANSFERASE 51 IU/L (10-60); AST ASPARTATE AMINOTRANSFERASE 22 IU/L (10-42); BILIRUBIN,TOTAL 0.7 mg/dL (0.2-1.0); BUN - BLOOD UREA NITROGEN < 5 mg/dL (6-20); CALCIUM 8.2 mg/dL (8.5-10.3); CARBON DIOXIDE - CO2 24 mmol/L (21-32); CHLORIDE 113 mmol/L (101-111); CREATININE 0.5 mg/dL (0.4-1.0); GLUCOSE 111 mg/dL (70-100); SODIUM 143 mmol/L (135-145)
[2020-06-13] MEDS: PANTOPRAZOLE 40 MG VIAL IVP SCH (05:54)
[2020-06-13] MEDS: DOCUSATE SODIUM 100 MG CAPSULE PO SCH ×2 (08:41→21:34)
[2020-06-13] MEDS: polyethylene glycoL 3350 17 GM PACKET PO SCH ×2 (08:41→21:35)
[2020-06-13] MEDS: PREGABALIN 100 MG CAPSULE PO SCH ×2 (08:43→21:35)
[2020-06-13] MEDS: oxyCODONE 5 MG TABLET PO PRN ×3 (08:45→21:34)
[2020-06-13] MEDS: HEPARIN 5,000 UNIT/ML VIAL SUBQ SCH ×2 (08:46→21:35)
[2020-06-13] MEDS: ONDANSETRON 4 MG/2 ML VIAL IVP PRN ×2 (11:40→17:04)
--- NOTE | 2020-06-13 13:51 | PROVIDER PROGRESS NOTE ---
Subjective - Prog Note Date Prog Note Date: 06/13/20 - Subjective Pt reports feeling: Improved (nausea and bm this am. nausea better this afternoon) Objective - Vital Signs/Intake & Output Reviewed Vital Signs: Yes Vital Signs: Vital Signs x48h Temp Pulse Resp BP Pulse Ox 06/13/20 11:23 36.8 C 71 24 146/67 H 99 06/13/20 07:59 37 C 79 18 108/52 L 96 06/13/20 05:49 36.6 C 69 19 115/56 L 99 Intake & Output: Intake & Output 06/10/20 06/11/20 06/12/20 06/13/20 23:59 23:59 23:59 23:59 Intake Total 3366.667 3863.333 4813.75 840 Output Total 2205 1845 330 465 Balance 4896.247 0512.333 4483.75 375 - Objective General Appearance: positive: No acute distress, Alert Eyes Bilateral: positive: Normal inspection Respiratory: positive: No respiratory distress Abdomen: positive: Non-tender, No distention, Other (no erythema jps serous to serosanguinous) Extremities: positive: No pedal edema Neurologic/Psychiatric: positive: Oriented x3 - Lab Results Fish Bones: 06/13/20 05:17 06/13/20 05:17 Other Labs: Lab Results x24hrs 06/13/20 06/13/20 Range/Units 05:17 05:17 WBC 4.0 L (4.8-10.8) x10^3/uL RBC 3.28 L (4.20-5.40) 10^6/uL Hgb 9.5 L (12.0-16.0) g/dL Hct 28.9 L (37.0-47.0) % MCV 88.1 (81.0-99.0) fL MCH 29.0 (27.0-31.0) pg MCHC 32.9 (32.0-36.0) g/dL RDW 12.9 (12.0-15.0) % Plt Count 180 (130-450) 10^3/uL MPV 9.5 (7.9-10.8) fL Neut # (Auto) 2.4 (1.5-6.6) 10^3/uL Lymph # (Auto) 1.1 L (1.5-3.5) 10^3/uL Broome # (Auto) 0.4 (0.0-1.0) 10^3/uL Eos # (Auto) 0.1 (0.0-0.7) 10^3/uL Baso # (Auto) 0.0 (0.0-0.1) 10^3/uL Absolute Nucleated RBC 0.00 x10^3/uL Nucleated RBC % 0.0 /100WBC Sodium 143 (135-145) mmol/L Potassium 3.7 (3.5-5.0) mmol/L Chloride 113 H (101-111) mmol/L Carbon Dioxide 24 (21-32) mmol/L Anion Gap 6.0 (6-13) BUN < 5 L (6-20) mg/dL Creatinine 0.5 (0.4-1.0) mg/dL Estimated GFR (MDRD) 126 (>89) Glucose 111 H (70-100) mg/dL Calcium 8.2 L (8.5-10.3) mg/dL Total Bilirubin 0.7 (0.2-1.0) mg/dL AST 22 (10-42) IU/L ALT 51 (10-60) IU/L Alkaline Phosphatase 45 (42-121) IU/L Total Protein 5.0 L (6.7-8.2) g/dL Albumin 2.5 L (3.2-5.5) g/dL Globulin 2.5 (2.1-4.2) g/dL Albumin/Globulin Ratio 1.0 (1.0-2.2) Assessment/Plan - Problem List (1) Cholecystitis Impression: gradual improvement. significant nausea earlier today. better now. plan home tomorrow if taking adequate diet without nausea
[2020-06-13] MEDS: D5NS W/20 MEQ KCL 1,000 ML IV SCH (14:17)
[2020-06-13] MEDS: SODIUM CHLORIDE FLUSH 0.9% 10 ML SYRINGE IVP PRN (17:04)
[2020-06-14] MEDS: methocarbamoL 500 MG TABLET PO SCH ×4 (00:30→18:11)
[2020-06-14] MEDS: METOCLOPRAMIDE 10 MG/2 ML VIAL IVP SCH ×4 (00:30→18:11)
[2020-06-14] MEDS: CIPROFLOXACIN 400 MG/200 ML 400 MG/200 ML BAG IV SCH ×2 (00:31→11:50)
[2020-06-14] MEDS: SODIUM CHLORIDE FLUSH 0.9% 10 ML SYRINGE IVP SCH ×6 (00:32→15:41)
[2020-06-14] MEDS: ACETAMINOPHEN 1,000 MG/100 ML 100 ML IV SCH ×3 (01:59→13:44)
[2020-06-14] MEDS: metroNIDAZOLE 500 MG/100 ML 500 MG/100 ML BAG IV SCH ×3 (02:28→18:12)
[2020-06-14] MEDS: oxyCODONE 5 MG TABLET PO PRN ×5 (04:54→22:09)
[2020-06-14] MEDS: SODIUM CHLORIDE FLUSH 0.9% 10 ML SYRINGE IVP PRN (06:02)
[2020-06-14] MEDS: PANTOPRAZOLE 40 MG VIAL IVP SCH (06:02)
[2020-06-14] MEDS: ONDANSETRON 4 MG/2 ML VIAL IVP PRN ×2 (08:09→16:01)
[2020-06-14] MEDS: D5NS W/20 MEQ KCL 1,000 ML IV SCH (08:44)
[2020-06-14 09:48] LABS: HGB - HEMOGLOBIN 10.3 g/dL (12.0-16.0); MEAN CORPUSCULAR HEMOGLOBIN 28.5 pg (27.0-31.0); MEAN CORPUSCULAR HGB CONC 32.5 g/dL (32.0-36.0); MEAN CORPUSCULAR VOLUME 87.8 fL (81.0-99.0); MEAN PLATELET VOLUME 9.5 fL (7.9-10.8); RED BLOOD COUNT 3.61 10^6/uL (4.20-5.40); RED CELL DISTRIBUTION WIDTH 13.1 % (12.0-15.0)
[2020-06-14 10:07] LABS: ALBUMIN 2.6 g/dL (3.2-5.5); ALKALINE PHOSPHATASE 61 IU/L (42-121); ALT ALANINE AMINOTRANSFERASE 50 IU/L (10-60); AST ASPARTATE AMINOTRANSFERASE 31 IU/L (10-42); BILIRUBIN,TOTAL 0.4 mg/dL (0.2-1.0); BUN - BLOOD UREA NITROGEN < 5 mg/dL (6-20); CALCIUM 8.2 mg/dL (8.5-10.3); CARBON DIOXIDE - CO2 25 mmol/L (21-32); CHLORIDE 107 mmol/L (101-111); CREATININE 0.7 mg/dL (0.4-1.0); GLUCOSE 124 mg/dL (70-100); SODIUM 139 mmol/L (135-145); TOTAL PROTEIN 5.3 g/dL (6.7-8.2)
[2020-06-14] MEDS: DOCUSATE SODIUM 100 MG CAPSULE PO SCH ×2 (10:10→21:05)
[2020-06-14] MEDS: PREGABALIN 100 MG CAPSULE PO SCH ×2 (10:11→21:07)
[2020-06-14] MEDS: polyethylene glycoL 3350 17 GM PACKET PO SCH ×2 (10:13→21:04)
[2020-06-14] MEDS: HEPARIN 5,000 UNIT/ML VIAL SUBQ SCH ×2 (10:15→21:05)
--- NOTE | 2020-06-14 10:18 | PROVIDER PROGRESS NOTE ---
Subjective - Prog Note Date Prog Note Date: 06/14/20 - Subjective Pt reports feeling: Worse (She has no appetite. She is not passing gas. She is lower abdominal pain as well as incisional pain) Objective - Vital Signs/Intake & Output Reviewed Vital Signs: Yes Vital Signs: Vital Signs x48h Temp Pulse Pulse Resp BP Pulse Ox 06/14/20 09:52 80 18 06/14/20 09:00 37.0 C 77 18 119/56 L 99 06/14/20 08:00 36.9 C 73 18 122/69 96 06/14/20 04:55 36.9 C 74 16 130/63 97 Intake & Output: Intake & Output 06/11/20 06/12/20 06/13/20 06/14/20 23:59 23:59 23:59 23:59 Intake Total 3863.333 4813.75 2590 1850 Output Total 1845 330 900 310 Balance 2018.333 4483.75 1690 1540 - Objective General Appearance: positive: No acute distress, Alert Eyes Bilateral: positive: Normal inspection, PERRL, EOMI Neck: positive: No JVD Respiratory: positive: No respiratory distress Abdomen: positive: No distention Neurologic/Psychiatric: positive: Oriented x3 - Lab Results Fish Bones: 06/14/20 09:45 06/14/20 09:30 Other Labs: Lab Results x24hrs 06/14/20 06/14/20 Range/Units 09:45 09:30 WBC 7.0 (4.8-10.8) x10^3/uL RBC 3.61 L (4.20-5.40) 10^6/uL Hgb 10.3 L (12.0-16.0) g/dL Hct 31.7 L (37.0-47.0) % MCV 87.8 (81.0-99.0) fL MCH 28.5 (27.0-31.0) pg MCHC 32.5 (32.0-36.0) g/dL RDW 13.1 (12.0-15.0) % Plt Count 235 (130-450) 10^3/uL MPV 9.5 (7.9-10.8) fL Sodium 139 (135-145) mmol/L Potassium 3.8 (3.5-5.0) mmol/L Chloride 107 (101-111) mmol/L Carbon Dioxide 25 (21-32) mmol/L Anion Gap 7.0 (6-13) BUN < 5 L (6-20) mg/dL Creatinine 0.7 (0.4-1.0) mg/dL Estimated GFR (MDRD) 85 L (>89) Glucose 124 H (70-100) mg/dL Calcium 8.2 L (8.5-10.3) mg/dL Total Bilirubin 0.4 (0.2-1.0) mg/dL AST 31 (10-42) IU/L ALT 50 (10-60) IU/L Alkaline Phosphatase 61 (42-121) IU/L Total Protein 5.3 L (6.7-8.2) g/dL Albumin 2.6 L (3.2-5.5) g/dL Globulin 2.7 (2.1-4.2) g/dL Albumin/Globulin Ratio 1.0 (1.0-2.2) Assessment/Plan - Problem List (1) Cholecystitis Impression: feeling worse today. no fevers. labs ordered and are normal no signs or symptoms of infection likely postop ileus given her extensive lysis of adhesions plan observation if not improving plan ct scan abd and pelvis with contrast
[2020-06-14] MEDS: ACETAMINOPHEN 500 MG TABLET PO PRN ×2 (16:04→21:30)
[2020-06-15] MEDS: CIPROFLOXACIN 400 MG/200 ML 400 MG/200 ML BAG IV SCH ×2 (00:05→12:03)
[2020-06-15] MEDS: METOCLOPRAMIDE 10 MG/2 ML VIAL IVP SCH ×4 (00:06→17:43)
[2020-06-15] MEDS: methocarbamoL 500 MG TABLET PO SCH ×4 (00:06→17:43)
[2020-06-15] MEDS: SODIUM CHLORIDE FLUSH 0.9% 10 ML SYRINGE IVP SCH ×6 (00:12→17:03)
[2020-06-15] MEDS: oxyCODONE 5 MG TABLET PO PRN (01:48)
[2020-06-15] MEDS: metroNIDAZOLE 500 MG/100 ML 500 MG/100 ML BAG IV SCH ×3 (01:49→17:43)
[2020-06-15] MEDS: D5NS W/20 MEQ KCL 1,000 ML IV SCH (03:39)
[2020-06-15 05:19] LABS: HGB - HEMOGLOBIN 10.3 g/dL (12.0-16.0); MEAN CORPUSCULAR HEMOGLOBIN 28.2 pg (27.0-31.0); MEAN CORPUSCULAR HGB CONC 32.2 g/dL (32.0-36.0); MEAN CORPUSCULAR VOLUME 87.7 fL (81.0-99.0); MEAN PLATELET VOLUME 9.3 fL (7.9-10.8); RED BLOOD COUNT 3.65 10^6/uL (4.20-5.40); RED CELL DISTRIBUTION WIDTH 13.1 % (12.0-15.0); WHITE BLOOD COUNT 8.2 x10^3/uL (4.8-10.8)
[2020-06-15 05:36] LABS: ALBUMIN 2.6 g/dL (3.2-5.5); ALBUMIN/GLOBULIN RATIO 0.9 (1.0-2.2); ALKALINE PHOSPHATASE 72 IU/L (42-121); ALT ALANINE AMINOTRANSFERASE 47 IU/L (10-60); AST ASPARTATE AMINOTRANSFERASE 31 IU/L (10-42); BILIRUBIN,TOTAL 0.7 mg/dL (0.2-1.0); BUN - BLOOD UREA NITROGEN < 5 mg/dL (6-20); CARBON DIOXIDE - CO2 25 mmol/L (21-32); CHLORIDE 105 mmol/L (101-111); CREATININE 0.7 mg/dL (0.4-1.0); GLUCOSE 119 mg/dL (70-100); SODIUM 137 mmol/L (135-145); TOTAL PROTEIN 5.6 g/dL (6.7-8.2)
[2020-06-15] MEDS: ACETAMINOPHEN 500 MG TABLET PO PRN (05:56)
[2020-06-15] MEDS: PANTOPRAZOLE 40 MG VIAL IVP SCH (05:57)
[2020-06-15] MEDS: HEPARIN 5,000 UNIT/ML VIAL SUBQ SCH ×2 (09:05→21:40)
[2020-06-15] MEDS: PREGABALIN 100 MG CAPSULE PO SCH ×2 (09:06→21:39)
[2020-06-15] MEDS: DOCUSATE SODIUM 100 MG CAPSULE PO SCH ×2 (09:06→21:39)
[2020-06-15] MEDS: polyethylene glycoL 3350 17 GM PACKET PO SCH ×2 (09:07→21:39)
--- NOTE | 2020-06-15 17:34 | PROVIDER PROGRESS NOTE ---
Subjective - Prog Note Date Prog Note Date: 06/15/20 - Subjective Pt reports feeling: Improved (she is feeling much improved. pain is improved and appetite is much improved) Objective - Vital Signs/Intake & Output Vital Signs: Vital Signs x48h Temp Pulse Resp BP Pulse Ox 06/15/20 17:00 37.6 C H 85 20 104/49 L 99 06/15/20 13:26 36.9 C 91 18 115/53 L 100 Intake & Output: Intake & Output 06/12/20 06/13/20 06/14/20 06/15/20 23:59 23:59 23:59 23:59 Intake Total 4813.75 2590 3770 1960 Output Total 330 900 765 270 Balance 4483.75 1690 3005 1690 - Objective General Appearance: positive: No acute distress, Alert Eyes Bilateral: positive: Normal inspection, PERRL, EOMI, No scleral icterus Neck: positive: No JVD Respiratory: positive: No respiratory distress Abdomen: positive: Non-tender, No distention, Other (no erythema. left brenden is not clearly bilious. right brenden serous with possibly some bile) - Lab Results Fish Bones: 06/15/20 04:55 06/15/20 04:55 Other Labs: Lab Results x24hrs 06/15/20 06/15/20 Range/Units 04:55 04:55 WBC 8.2 (4.8-10.8) x10^3/uL RBC 3.65 L (4.20-5.40) 10^6/uL Hgb 10.3 L (12.0-16.0) g/dL Hct 32.0 L (37.0-47.0) % MCV 87.7 (81.0-99.0) fL MCH 28.2 (27.0-31.0) pg MCHC 32.2 (32.0-36.0) g/dL RDW 13.1 (12.0-15.0) % Plt Count 241 (130-450) 10^3/uL MPV 9.3 (7.9-10.8) fL Sodium 137 (135-145) mmol/L Potassium 3.0 L (3.5-5.0) mmol/L Chloride 105 (101-111) mmol/L Carbon Dioxide 25 (21-32) mmol/L Anion Gap 7.0 (6-13) BUN < 5 L (6-20) mg/dL Creatinine 0.7 (0.4-1.0) mg/dL Estimated GFR (MDRD) 85 L (>89) Glucose 119 H (70-100) mg/dL Calcium 8.0 L (8.5-10.3) mg/dL Total Bilirubin 0.7 (0.2-1.0) mg/dL AST 31 (10-42) IU/L ALT 47 (10-60) IU/L Alkaline Phosphatase 72 (42-121) IU/L Total Protein 5.6 L (6.7-8.2) g/dL Albumin 2.6 L (3.2-5.5) g/dL Globulin 3.0 (2.1-4.2) g/dL Albumin/Globulin Ratio 0.9 L (1.0-2.2) Assessment/Plan - Problem List (1) Cholecystitis Impression: difficult open cholecystectomy and extensive lysis of adhesions. jps had been serosanguinous. she is much improved today; however, left brenden clearly contains bile plan continue present care and jps. I would anticipate this bile leak will heal on its own. No indication she has a major duct injury. possibly home tomorrow with drains. replace k if the bile drainage is not improving plan outpatient further work up ie mrcp, possible ercp
[2020-06-15] MEDS: NS W/40 MEQ KCL 1,000 ML IV SCH (18:40)
[2020-06-16] MEDS: methocarbamoL 500 MG TABLET PO SCH ×4 (00:22→17:48)
[2020-06-16] MEDS: CIPROFLOXACIN 400 MG/200 ML 400 MG/200 ML BAG IV SCH ×2 (00:22→11:58)
[2020-06-16] MEDS: METOCLOPRAMIDE 10 MG/2 ML VIAL IVP SCH ×4 (00:22→17:49)
[2020-06-16] MEDS: SODIUM CHLORIDE FLUSH 0.9% 10 ML SYRINGE IVP SCH ×6 (00:23→17:49)
[2020-06-16] MEDS: metroNIDAZOLE 500 MG/100 ML 500 MG/100 ML BAG IV SCH ×3 (01:52→17:49)
[2020-06-16] MEDS: PANTOPRAZOLE 40 MG VIAL IVP SCH (05:33)
[2020-06-16] MEDS: ACETAMINOPHEN 500 MG TABLET PO PRN (08:31)
[2020-06-16] MEDS: PREGABALIN 100 MG CAPSULE PO SCH (08:31)
[2020-06-16] MEDS: D5NS W/20 MEQ KCL 1,000 ML IV SCH ×2 (08:32→08:35)
[2020-06-16] MEDS: polyethylene glycoL 3350 17 GM PACKET PO SCH (08:36)
[2020-06-16] MEDS: NS W/40 MEQ KCL 1,000 ML IV SCH (08:36)
[2020-06-16] MEDS: HEPARIN 5,000 UNIT/ML VIAL SUBQ SCH (08:37)
[2020-06-16] MEDS: DOCUSATE SODIUM 100 MG CAPSULE PO SCH (10:41)
--- NOTE | 2020-06-16 17:12 | Discharge Plan ---
Discharge Plan Problem Reviewed?: Yes Disposition: Home, Self Care Condition: Good Diet: Regular Activity Restrictions: No Restrictions Shower Restrictions: No (cover drain sites) Driving Restrictions: No Instruction Topics: Metoclopramide injection, Methocarbamol tablets, Celecoxib capsules, Pregabalin capsules No Smoking: If you smoke, Please STOP! Call for help. Follow-up with: Lake Navarrete MD [Provider Admit Priv/Credential] -
--- NOTE | 2020-06-16 17:16 | Discharge Plan ---
Discharge Plan Problem Reviewed?: Yes Disposition: Home, Self Care Diet: Regular Activity Restrictions: No Restrictions Shower Restrictions: No (cover drain sites) Driving Restrictions: No Additional Instructions or Follow Up instructions: call the office to make a follow up appointment [phone] No Smoking: If you smoke, Please STOP! Call for help. Follow-up with: Lake Navarrete MD [Provider Admit Priv/Credential] -
--- NOTE | 2020-06-16 17:19 | DISCHARGE SUMMARY ---
"Discharge Summary Admit Date: 06/09/20 Discharge Date: 06/16/20 Discharging Provider: marek navarrete Code Status: Attempt Resuscitation Condition at Discharge: Good - DIAGNOSES Admission Diagnoses: cholecystitis Discharge Diagnoses with Status of Each Condition: cholecystitis. improved home in good condition extensive adhesions. improved. home in good condition - HPI History of Present Illness: acute onset cholecystitis few days prior to surgery - CONSULTS | PROCEDURES Procedures: lap converted to open cholecystectomy with extensive lysis of adhesions - ALLERGIES Allergies/Adverse Reactions: Allergies Allergy/AdvReac Type Severity Reaction Status Date / Time Penicillins Allergy Unknown Verified 06/09/20 05:40 - MEDICATIONS Home Medications: Ambulatory Orders Medication Instructions Recorded Confirmed Lactobacillus Acidophilus 1 each PO DAILY 06/10/20 06/10/20 [Probiotic Acidophilus] Multivitamin [Theragran] 1 each PO DAILY 06/10/20 06/10/20 - PHYSICAL EXAM AT DISCHARGE General Appearance: positive: No acute distress, Alert Eyes Bilateral: positive: Normal inspection, PERRL, EOMI, No scleral icterus ENT: positive: No signs of dehydration Neck: positive: No JVD Respiratory: positive: No respiratory distress Abdomen: positive: Non-tender, No distention, Other (no erythema. brenden drainage significantly reduced) Neurologic/Psychiatric: positive: Oriented x3 - LABS Result Diagrams: 06/15/20 04:55 06/15/20 04:55 - FOLLOW UP Follow Up: Dr Marek Navarrete next week Please call to make an [id number] [phone]"
[2020-06-16 20:13] VITALS: BP 113/60
== END 2020-06-16 20:30 | disposition home or self-care (01) | DRG 416 ==
LOC: ED 05:31 → SDS 13:43 → ICU 22:10 → SDS 23:13 → ICU 23:14 → MS2 06-11 19:24
PROVIDERS: ADMIT Surgery; ATTEND Surgery
PROC: 0FJ44ZZ Inspection of Gallbladder, Percutaneous Endoscopic Approach (ICD-10-PCS; 2020-06-09)
PROC: 0DBU0ZZ Excision of Omentum, Open Approach (ICD-10-PCS; 2020-06-09)
PROC: 0DQV0ZZ Repair Mesentery, Open Approach (ICD-10-PCS; 2020-06-09)
PROC: 0DNE0ZZ Release Large Intestine, Open Approach (ICD-10-PCS; 2020-06-09)
PROC: 0DN80ZZ Release Small Intestine, Open Approach (ICD-10-PCS; 2020-06-09)
PROC: 0DNU0ZZ Release Omentum, Open Approach (ICD-10-PCS; 2020-06-09)
PROC: 0FN00ZZ Release Liver, Open Approach (ICD-10-PCS; 2020-06-09)
PROC: 0FT40ZZ Resection of Gallbladder, Open Approach (ICD-10-PCS; principal; 2020-06-09 16:15)
DX: K80.00 Calculus of gallbladder with acute cholecystitis without obstruction (principal); K82.8 Other specified diseases of gallbladder; K82.A1 Gangrene of gallbladder in cholecystitis; K66.0 Peritoneal adhesions (postprocedural) (postinfection); K42.9 Umbilical hernia without obstruction or gangrene; S36.00 Unspecified injury of spleen; V49.9XXS Car occupant (driver) (passenger) injured in unspecified traffic accident, sequela; Z20.828 Contact with and (suspected) exposure to other viral communicable diseases
CPT/HCPCS: 36415; 71045; 76705; 80053; 83690; 85025; 85027; 87150; 87635; 93005; 96365; 96368; 96375; 96376; 99285; A9270; J0131; J0330; J1170; J2765; J7120